=== PATIENT | male | born 1995 | race Caucasian/White ===

== ENCOUNTER 2020-10-26 11:36 | Outpatient (REF) | payer OTHER, SELFPAY ==
[2020-10-26 16:01] LABS: CT PCR DETECTED (Not Detect.); NG PCR NOT DETECTED (Not Detect.)
== END 2020-10-26 11:37 | disposition home or self-care (01) ==
LOC: HO.LNP 11:36
PROVIDERS: Visit Provider Hospitalist
DX: Z11.3 Encounter for screening for infections with a predominantly sexual mode of transmission (principal); R30.0 Dysuria
CPT/HCPCS: 87086; 87491; 87591